=== PATIENT | female | born 1950 | race Caucasian/White ===

== ENCOUNTER 2017-07-14 10:06 | Inpatient (IN) | payer OTHER, MEDICARE ==
[~2017-07-14] VITALS: Ht 162.6 cm; Wt 78.5 kg
[2017-07-14] VITALS (10 sets, daily range): BP systolic 139–158; BP diastolic 70–80; PULSE 82–109; RESP 16–17; TEMP 98–98.5; O2SAT 96–99
[~2017-07-14 10:06] MED LIST: LISI10TA PO; TOPI25TA7 PO
--- NOTE | 2017-07-14 10:32 | PD.HP.UP ---
H&P Update Note The Pre-Admit History and Physical Examination regarding the above named patient was reviewed (including, but not limited to, vital signs, heart, lungs, co-morbid conditions), and upon re-examination it is noted that: the patient's condition has not significantly changed since the last examination. Khoa Lopez MD Jul 14, 2017 10:32
[2017-07-14] MEDS ORDERED: METOPROLOL TARTRATE 25 MG TAB PO PRN (10:45)
[2017-07-14] MEDS ORDERED: CHLORHEXIDINE GLUCONATE 2 % 1 PACK (2 CLOTHS) TOPICAL PRN (10:45)
[2017-07-14] MEDS ORDERED: DEXT 5%-NACL 0.9% 1000 ML INJ 1,000 ML IV SCH (10:45)
[2017-07-14] MEDS ORDERED: LACTATED RINGER'S 1000 ML IV PRN (10:45)
[2017-07-14] MEDS ORDERED: ALVIMOPAN 12 MG CAPSULE - On Call PO SCH (10:45)
[2017-07-14] MEDS ORDERED: INSULIN HUMAN REGULAR 1,000 UNITS/10 ML VIAL SQ PRN (10:45)
[2017-07-14] MEDS ORDERED: POVIDONE IODINE 5% (ANTISEPSIS KIT) 4 APPLICATIONS EACH NARE PRN (10:45)
[2017-07-14] MEDS ORDERED: SODIUM CHLORID 0.9% 500 ML IV PRN (10:45)
[2017-07-14] MEDS ORDERED: METRONIDAZOLE 500 MG/100 ML ISONTONIC SOLN IV SCH (11:00)
[2017-07-14] MEDS ORDERED: ceFAZolin 1,000 MG/NS 100 ML IV SCH ×2 (11:00)
--- NOTE | 2017-07-14 11:48 | RADRPT ---
EXAM DATE/TIME: 07/14/2017 10:36 [facility] COMPARISON: No previous studies available for comparison. INDICATIONS : Pre op. Evaluate for pneumothorax, pneumonia, and communicable diseases. MEDICAL HISTORY : None. SURGICAL HISTORY : None. ENCOUNTER: Initial ACUITY: 1 day PAIN SCORE: 0/10 LOCATION: Bilateral chest FINDINGS: Minimal linear opacity at the left lung base. The cardiomediastinal contours are within normal limits . Bony thorax is intact. CONCLUSION: 1. Minimal left lung base atelectasis/scarring. Tian Jimenez MD on July 14, 2017 at 11:45 Board Certified Radiologist. This report was verified electronically.
[2017-07-14] MEDS ORDERED: GLYCOPYRROLATE 1 MG/5 ML SYRINGE IV PUSH ONE (12:00)
[2017-07-14] MEDS ORDERED: PROPOFOL 200 MG/20 ML AMP IV ONE (12:00)
[2017-07-14] MEDS ORDERED: PHENYLEPH/NS 1000 MCG/10 ML SYR IV ONE (12:00)
[2017-07-14] MEDS ORDERED: NEOSTIGMINE 5 MG/5 ML SYRINGE IV PUSH ONE (12:00)
[2017-07-14] MEDS ORDERED: DEXAMETHASONE SOD PHOS 4 MG/ML VIAL IV ONE (12:00)
[2017-07-14] MEDS ORDERED: LACTATED RINGER'S 1000 ML INJ 2,000 ML IV ONE (12:00)
[2017-07-14] MEDS ORDERED: ONDANSETRON HCL 4 MG/2 ML VIAL IV PUSH ONE (12:00)
[2017-07-14] MEDS ORDERED: ROCURONIUM INJ 50 MG/5 ML SYRINGE IV PUSH ONE (12:00)
[2017-07-14] MEDS ORDERED: LIDOCAINE HCL 1% PF 5 ML SYRINGE OTHER ONE (12:00)
[2017-07-14] MEDS ORDERED: KETOROLAC TROMETHAMINE 30 MG/ML (IVP) VIAL ONE (12:57)
[2017-07-14] MEDS ORDERED: ACETAMINOPHEN 1000 MG/100 ML 100 ML IV ONE (12:57)
[2017-07-14] MEDS ORDERED: BUPIVACAINE HCL PF 0.5% 30 ML VIAL ONE ×5 (13:50→13:52)
[2017-07-14] MEDS ORDERED: ENALAPRILAT 2.5 MG/2 ML VIAL IV PUSH PRN (15:00)
[2017-07-14] MEDS ORDERED: ONDANSETRON HCL 4 MG/2 ML VIAL IV PUSH PRN (15:00)
[2017-07-14] MEDS ORDERED: Post-op Orders (for Pharmacy) XX ONE (15:00)
[2017-07-14] MEDS ORDERED: KETOROLAC TROMETHAMINE 30 MG/ML (IVP) VIAL IVP PRN (15:00)
[2017-07-14] MEDS ORDERED: BUPIVACAINE HCL PF 0.5% 30 ML VIAL NB SCH (15:00)
[2017-07-14] MEDS ORDERED: NALOXONE HCL 0.4 MG/ML AMP IV PUSH PRN (15:00)
[2017-07-14] MEDS ORDERED: POTASSIUM CHLOR 20 MEQ PREMIX 100 ML IV PRN (15:00)
[2017-07-14] MEDS ORDERED: NON-FORMULARY DRUG (Lisinopril-Hctz 1 TAB) PO SCH (15:00)
[2017-07-14] MEDS ORDERED: BENZOCAINE 6 MG/MENTHOL 10 MG LOZENGE BUCCAL PRN (15:00)
[2017-07-14] MEDS ORDERED: ACETAMINOPHEN 325 MG TAB PO PRN (15:00)
[2017-07-14] MEDS ORDERED: DO NOT ADM ANY ANTICOAGULANT DRUGS PRN (15:00)
[2017-07-14] MEDS ORDERED: POTASSIUM CHLOR 40 MEQ PREMIX 100 ML IV PRN (15:00)
[2017-07-14] MEDS ORDERED: ENALAPRILAT 1.25 MG/ML VIAL IV PUSH PRN (15:00)
[2017-07-14] MEDS ORDERED: MIDAZOLAM HCL 2 MG/2 ML VIAL ONE (15:12)
[2017-07-14] MEDS ORDERED: MORPHINE SULFATE 4 MG/ML INJ ONE (15:12)
[2017-07-14] MEDS: MORPHINE SULFATE 30 MG/30 ML PCA IV SCH (15:30)
[2017-07-14] MEDS ORDERED: *morphine SULFATE 4 MG/ML PERIprocedure ONLY ONE (15:32)
[2017-07-14] MEDS: METOCLOPRAMIDE HCL 10 MG/2 ML VIAL IVS SCH (16:00)
[2017-07-14] MEDS: D5-NS + KCL 20 MEQ INJ 1,000 ML IV SCH ×2 (16:00→21:17)
[2017-07-14] MEDS: PCA - TOTAL MG MORPHINE DELIVERED PER SHIFT SCH ×2 (16:33→22:00)
[2017-07-14] MEDS: TOPIRAMATE 25 MG TAB PO SCH (17:00)
[2017-07-14] MEDS: metroNIDAZOLE 500 MG INJ 100 ML IV SCH (22:11)
[2017-07-15] VITALS (27 sets, daily range): BP systolic 118–136; BP diastolic 61–71; PULSE 78–103; RESP 16; TEMP 97.7–98.9; O2SAT 94–98
[2017-07-15] MEDS: METOCLOPRAMIDE HCL 10 MG/2 ML VIAL IVS SCH ×2 (04:00→16:46)
[2017-07-15] MEDS: D5-NS + KCL 20 MEQ INJ 1,000 ML IV SCH ×2 (04:48→23:05)
[2017-07-15] MEDS: metroNIDAZOLE 500 MG INJ 100 ML IV SCH ×2 (05:33→17:04)
[2017-07-15] MEDS: PCA - TOTAL MG MORPHINE DELIVERED PER SHIFT SCH ×3 (05:41→22:00)
[2017-07-15 06:03] LABS: AUTOMATED NEUTROPHIL # 16.4 TH/MM3 (1.8-7.7); BASOPHIL % 0.1 % (0.0-2.0); HEMATOCRIT 36.8 % (35.0-46.0); HEMOGLOBIN 12.2 GM/DL (11.6-15.3); LYMPH % 5.6 % (9.0-44.0); MEAN CELL VOLUME 80.3 FL (80.0-100.0); MEAN CORPUSCULAR HEMOGLOBIN 26.6 PG (27.0-34.0); MEAN CORPUSCULAR HGB CONC 33.1 % (32.0-36.0); MEAN PLATELET VOLUME 7.5 FL (7.0-11.0); MONO % 5.5 % (0.0-8.0); NEUT % 88.8 % (16.0-70.0); PLATELET COUNT 321 TH/MM3 (150-450); RED BLOOD COUNT 4.59 MIL/MM3 (4.00-5.30); RED CELL DISTRIBUTION WIDTH 13.8 % (11.6-17.2); WHITE BLOOD COUNT 18.5 TH/MM3 (4.0-11.0)
[2017-07-15 06:34] LABS: BICARBONATE 24.4 MEQ/L (21.0-32.0); CALCIUM 8.3 MG/DL (8.5-10.1); CREATININE 1.15 MG/DL (0.50-1.00)
[2017-07-15] MEDS: PANTOPRAZOLE SODIUM 40 MG VIAL IVP SCH (09:00)
[2017-07-15] MEDS: TOPIRAMATE 25 MG TAB PO SCH (10:18)
[2017-07-15] MEDS: ALVIMOPAN 12 MG CAPSULE - Post-op dosing PO SCH ×2 (10:18→22:52)
[2017-07-15] MEDS: LISINOPRIL 10 MG TAB PO SCH (10:19)
[2017-07-15] MEDS: PANTOPRAZOLE SOD 40 MG DELAYED RELEASE TAB PO SCH (10:20)
[2017-07-15] MEDS: HYDROCHLOROTHIAZIDE 25 MG TAB PO SCH (10:20)
[2017-07-15] MEDS: MORPHINE SULFATE 30 MG/30 ML PCA IV SCH (11:42)
--- NOTE | 2017-07-15 11:42 | HHI.PR ---
Subjective Remarks C/R Surg POD #1 afebrile, VSS UO good Objective - Vital Signs Date Time Temp Pulse Resp B/P (MAP) Pulse Ox O2 Delivery O2 Flow Rate FiO2 07/15/17 09:32 97 21 07/15/17 07:40 97.7 81 16 134/62 (86) 07/14/17 20:37 Nasal Cannula 2.00 Result Diagram: 07/15/17 0547 07/15/17 0547 Other Results PE alert Abd - soft, wound dry, min tympany A/P Assessment and Plan Imp: stable, OOB decr IVF startPO dc dianna cortez to floor Khoa Lopez MD Jul 15, 2017 11:42
[2017-07-15] MEDS ORDERED: ALVIMOPAN 12 MG CAPSULE PO SCH (21:00)
[2017-07-15] MEDS: ACETAMINOPHEN/HYDROcodone 325 MG/5 MG TAB PO PRN (23:14)
[2017-07-16] VITALS (17 sets, daily range): BP systolic 122–169; BP diastolic 68–92; PULSE 80–113; RESP 16–18; TEMP 97.8–99; O2SAT 93–97
[2017-07-16] MEDS: METOCLOPRAMIDE HCL 10 MG/2 ML VIAL IVS SCH ×2 (03:54→15:49)
[2017-07-16 05:02] LABS: AUTOMATED NEUTROPHIL # 9.9 TH/MM3 (1.8-7.7); BASOPHIL % 0.3 % (0.0-2.0); EOSINOPHIL % 0.4 % (0.0-4.0); HEMATOCRIT 32.7 % (35.0-46.0); LYMPHOCYTE # 1.8 TH/MM3 (1.0-4.8); MEAN CELL VOLUME 80.5 FL (80.0-100.0); MEAN CORPUSCULAR HEMOGLOBIN 27.1 PG (27.0-34.0); MEAN CORPUSCULAR HGB CONC 33.7 % (32.0-36.0); MONO % 6.6 % (0.0-8.0); MONOCYTE # 0.8 TH/MM3 (0-0.9); NEUT % 78.7 % (16.0-70.0); PLATELET COUNT 279 TH/MM3 (150-450); RED BLOOD COUNT 4.06 MIL/MM3 (4.00-5.30); RED CELL DISTRIBUTION WIDTH 13.7 % (11.6-17.2); WHITE BLOOD COUNT 12.6 TH/MM3 (4.0-11.0)
[2017-07-16 05:05] LABS: BICARBONATE 25.5 MEQ/L (21.0-32.0); CALCIUM 9.1 MG/DL (8.5-10.1); CREATININE 1.05 MG/DL (0.50-1.00)
[2017-07-16] MEDS: PCA - TOTAL MG MORPHINE DELIVERED PER SHIFT SCH ×3 (06:00→21:39)
[2017-07-16] MEDS: D5-NS + KCL 20 MEQ INJ 1,000 ML IV SCH ×2 (07:03→11:35)
[2017-07-16] MEDS: PANTOPRAZOLE SODIUM 40 MG VIAL IVP SCH (09:00)
[2017-07-16] MEDS: ALVIMOPAN 12 MG CAPSULE - Post-op dosing PO SCH ×2 (09:05→21:38)
[2017-07-16] MEDS: TOPIRAMATE 25 MG TAB PO SCH (09:05)
[2017-07-16] MEDS: PANTOPRAZOLE SOD 40 MG DELAYED RELEASE TAB PO SCH (09:05)
[2017-07-16] MEDS: HYDROCHLOROTHIAZIDE 25 MG TAB PO SCH (09:06)
[2017-07-16] MEDS: LISINOPRIL 10 MG TAB PO SCH (09:09)
--- NOTE | 2017-07-16 17:32 | HHI.PR ---
Subjective Remarks C/R Surg POD #2 afebrile, VSS UO good +flatus Objective - Vital Signs Date Time Temp Pulse Resp B/P (MAP) Pulse Ox O2 Delivery O2 Flow Rate FiO2 07/16/17 16:00 84 07/16/17 14:00 18 07/16/17 11:00 98.4 169/88 (115) 94 07/15/17 09:32 21 07/14/17 20:37 Nasal Cannula 2.00 Result Diagram: 07/16/1731107/16/17 031 Objective Remarks PE alert Abd - soft, wound dry Path - benign adenoma A/P Assessment and Plan Imp: stable, OOB decr IVF - hep lock startPO, adv dc Khoa Delgado MD Jul 16, 2017 17:32
[2017-07-17] VITALS (7 sets, daily range): BP systolic 90–170; BP diastolic 71–88; PULSE 93–100; RESP 18–19; TEMP 98–99.6; O2SAT 95–97
[2017-07-17] MEDS: METOCLOPRAMIDE HCL 10 MG/2 ML VIAL IVS SCH ×2 (03:14→15:04)
[2017-07-17] MEDS: PCA - TOTAL MG MORPHINE DELIVERED PER SHIFT SCH (05:43)
[2017-07-17] MEDS: PANTOPRAZOLE SOD 40 MG DELAYED RELEASE TAB PO SCH (09:00)
[2017-07-17] MEDS: ALVIMOPAN 12 MG CAPSULE - Post-op dosing PO SCH ×2 (09:00→22:29)
[2017-07-17] MEDS: TOPIRAMATE 25 MG TAB PO SCH (09:01)
[2017-07-17] MEDS: PANTOPRAZOLE SODIUM 40 MG VIAL IVP SCH (09:01)
[2017-07-17] MEDS: HYDROCHLOROTHIAZIDE 25 MG TAB PO SCH (09:01)
[2017-07-17] MEDS: LISINOPRIL 10 MG TAB PO SCH (09:01)
[2017-07-17] MEDS: D5-NS + KCL 20 MEQ INJ 1,000 ML IV SCH ×2 (09:03→22:30)
[2017-07-17] MEDS: MORPHINE SULFATE 30 MG/30 ML PCA IV SCH (09:07)
--- NOTE | 2017-07-17 10:17 | HHI.PR ---
Subjective Remarks No N or V. BMs and flatus.Hungry Objective Vital Signs Date Time Temp Pulse Resp B/P (MAP) Pulse Ox O2 Delivery O2 Flow Rate FiO2 07/17/17 08:56 99.5 93 18 90/ 97 07/17/17 05:43 18 07/17/17 04:00 98.4 98 18 166/88 (114) 97 07/17/17 02:15 169/80 (109) 07/17/17 00:00 98.8 98 19 170/82 (111) 95 07/16/17 21:39 18 07/16/17 18:00 160/92 (114) 07/16/17 18:00 92 07/16/17 17:00 88 07/16/17 16:00 84 07/16/17 15:00 86 07/16/17 14:00 18 07/16/17 13:00 90 07/16/17 11:00 113 07/16/17 11:00 98.4 113 18 169/88 (115) 94 I/O 07/16/17 07/16/17 07/16/17 07/17/17 07/17/17 07/17/17 07:00 15:00 23:00 07:00 15:00 23:00 Intake Total 907 ml Output Total 1250 ml Balance -343 ml IV Total 907 ml Output Urine Total 1250 ml # Voids 3 # Bowel Movements 0 Result Diagram: 07/16/1731107/16/17311 Objective Remarks VS-S Abd:flat,soft,wound clean.On-Q removed I&Os-OK Assessment and Plan Assessment and Plan Stable POD#3 Regular diet. D/C BODY WIRER. Ambulate Alex Chávez MD Jul 17, 2017 10:17
[2017-07-17] MEDS: ACETAMINOPHEN/HYDROcodone 325 MG/5 MG TAB PO PRN (22:40)
[2017-07-18 00:41] VITALS: BP 142/78; PULSE 98; RESP 20; TEMP 99.2; O2SAT 93
[2017-07-18] MEDS: METOCLOPRAMIDE HCL 10 MG/2 ML VIAL IVS SCH ×2 (04:56→15:26)
[2017-07-18 06:12] VITALS: BP 129/67; PULSE 91; RESP 18; TEMP 98.2; O2SAT 94
[2017-07-18] MEDS: PANTOPRAZOLE SODIUM 40 MG VIAL IVP SCH (08:12)
[2017-07-18] MEDS: PANTOPRAZOLE SOD 40 MG DELAYED RELEASE TAB PO SCH (08:12)
[2017-07-18] MEDS: HYDROCHLOROTHIAZIDE 25 MG TAB PO SCH (08:13)
[2017-07-18] MEDS: LISINOPRIL 10 MG TAB PO SCH (08:13)
[2017-07-18] MEDS: ALVIMOPAN 12 MG CAPSULE - Post-op dosing PO SCH ×2 (08:13→20:27)
[2017-07-18] MEDS: TOPIRAMATE 25 MG TAB PO SCH (08:13)
[2017-07-18] MEDS: ACETAMINOPHEN/HYDROcodone 325 MG/5 MG TAB PO PRN ×4 (08:14→23:36)
[2017-07-18] MEDS: D5-NS + KCL 20 MEQ INJ 1,000 ML IV SCH ×2 (08:20→15:27)
[2017-07-18 08:35] VITALS: BP 122/73; PULSE 86; RESP 18; TEMP 98.1; O2SAT 96
--- NOTE | 2017-07-18 10:40 | HHI.PR ---
Subjective Remarks No N or V. Flatus but really no BMs yet Objective Vital Signs Date Time Temp Pulse Resp B/P (MAP) Pulse Ox O2 Delivery O2 Flow Rate FiO2 07/18/17 08:35 98.1 86 18 122/73 (89) 96 07/18/17 06:12 98.2 91 18 129/67 (87) 94 07/18/17 00:41 99.2 98 20 142/78 (99) 93 07/17/17 20:00 99.6 100 18 154/85 (108) 95 07/17/17 16:27 98.6 97 18 139/71 (93) 95 07/17/17 12:08 98.0 99 18 145/86 (105) 96 I/O 07/17/17 07/17/17 07/17/17 07/18/17 07/18/17 07/18/17 07:00 15:00 23:00 07:00 15:00 23:00 Intake Total 480 ml 240 ml Balance 480 ml 240 ml Intake Oral 480 ml 240 ml # Voids 3 6 1 # Bowel Movements 0 Result Diagram: 07/16/1731107/16/17311 Objective Remarks VS-S Abd:flat,soft,wound clean. I&Os-OK Assessment and Plan Assessment and Plan Stable POD#4 Await return of bowel function. Ambulate Alex Chávez MD Jul 18, 2017 10:40
[2017-07-18 12:23] VITALS: BP 133/73; PULSE 94; RESP 18; TEMP 97.4; O2SAT 96
[2017-07-18 16:13] VITALS: BP 136/71; PULSE 90; RESP 18; TEMP 99; O2SAT 95
[2017-07-18 20:07] VITALS: BP 136/74; PULSE 92; RESP 17; TEMP 99; O2SAT 96
[2017-07-19 00:29] VITALS: BP 132/73; PULSE 78; RESP 17; TEMP 98.7; O2SAT 95
[2017-07-19] MEDS: METOCLOPRAMIDE HCL 10 MG/2 ML VIAL IVS SCH ×2 (04:08→16:28)
[2017-07-19] MEDS: ACETAMINOPHEN/HYDROcodone 325 MG/5 MG TAB PO PRN ×5 (04:09→16:55)
[2017-07-19 04:33] VITALS: BP 124/61; PULSE 72; RESP 17; TEMP 98.1; O2SAT 94
[2017-07-19] MEDS: PANTOPRAZOLE SODIUM 40 MG VIAL IVP SCH (07:50)
[2017-07-19 08:00] VITALS: BP 117/64; PULSE 80; RESP 16; TEMP 98; O2SAT 93
[2017-07-19] MEDS: HYDROCHLOROTHIAZIDE 25 MG TAB PO SCH (08:12)
[2017-07-19] MEDS: LISINOPRIL 10 MG TAB PO SCH (08:12)
[2017-07-19] MEDS: TOPIRAMATE 25 MG TAB PO SCH (08:13)
[2017-07-19] MEDS: ALVIMOPAN 12 MG CAPSULE - Post-op dosing PO SCH (08:13)
[2017-07-19] MEDS: PANTOPRAZOLE SOD 40 MG DELAYED RELEASE TAB PO SCH (08:13)
[2017-07-19] MEDS ORDERED: HYDR-3516 PO (16:18)
== END 2017-07-19 16:57 | disposition home or self-care (01) | DRG 331 ==
LOC: HSDI 10:06 → HCPC 16:22 → HCIS 07-16 09:56 → N05B 07-16 20:37
PROVIDERS: ADMIT Colon & Rectal Surgery; ATTEND Colon & Rectal Surgery
PROC: 0DBK4ZZ Excision of Ascending Colon, Percutaneous Endoscopic Approach (ICD-10-PCS; principal; 2017-07-15)
PROC: 0DTB4ZZ Resection of Ileum, Percutaneous Endoscopic Approach (ICD-10-PCS; 2017-07-15)
DX: K63.5 Polyp of colon (principal); I12.9 Hypertensive chronic kidney disease with stage 1 through stage 4 chronic kidney disease, or unspecified chronic kidney disease; N18.9 Chronic kidney disease, unspecified
CPT/HCPCS: 71045; 80048; 85025; 86850; 86900; 86901; 88305; 88309; 94150; J0131; J0690; J1100; J1885; J2250; J2270; J2370; J2405; J2710; J2765; J3010; J3480; J7120